=== PATIENT | female | born 1975 | race Two or more races ===

== ENCOUNTER 2021-02-07 15:37 | Emergency (ER) | payer BC, OTHER ==
[~2021-02-07] VITALS: Ht 162.6 cm; Wt 89.4 kg
[2021-02-07 17:04] VITALS: BP 151/89
[2021-02-07] MEDS ORDERED: LORazepam 2MG/ML-1ML VIAL IM ONE (17:15)
[2021-02-07 17:43] LABS: Basophils # (auto) 0.1 10 ^3/uL (0-0.2); Basophils % (auto) 0.4 % (0.0-2.0); Eosinophils # (auto) 0 10 ^3/uL (0-0.8); Eosinophils % (auto) 0.3 % (0.0-7.0); Hemoglobin 14.1 g/dL (12.2-16.2); Lymphocytes % (auto) 16.7 % (10.0-50.0); Mean Corpuscular Hgb Conc. 32.8 g/dL (32.0-36.0); Mean Corpuscular Volume 88.4 fL (80.0-100.0); Monocytes # (auto) 0.4 10 ^3/uL (0-1.3); Monocytes % (auto) 3.7 % (0.0-12.0); Neutrophils # (auto) 9.3 10 ^3/uL (1.6-8.6); Neutrophils % (auto) 78.9 % (37.0-80.0); Red Blood Cells 4.86 10^6/uL (4.0-5.20); Red Cell Distribution Width 13.9 % (11.8-14.3); White Blood Cell 11.8 10^3/uL (4.4-10.8)
[2021-02-07 18:09] LABS: Anion Gap 7 (5-15); BUN/Creatinine Ratio 13.5; Blood Urea Nitrogen 12 mg/dL (7-18); Carbon Dioxide 25 mmol/L (21-32); Chloride 107 mmol/L (98-107); GFR African American 89 mL/min; GFR Non-African American 73 mL/min; Glucose 207 mg/dL (74-106); Potassium 3.8 mmol/L (3.5-5.1); Sodium 139 mmol/L (136-145)
== END 2021-02-07 18:52 | disposition home or self-care (01) ==
LOC: ER 15:37 → EDBD 15:37 → ER 18:30
DX: F41.1 Generalized anxiety disorder (principal); R73.9 Hyperglycemia, unspecified; Z90.710 Acquired absence of both cervix and uterus
CPT/HCPCS: 36415; 80048; 84484; 85025; 93005; 96372; 99284; J2060